=== PATIENT | female | born 1960 | race Caucasian/White ===

== ENCOUNTER 2024-12-04 10:26 | Outpatient (AMB) | payer OTHER, SELFPAY ==
--- NOTE | 2024-12-04 10:33 | MHC.OFFWIV ---
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 - The patient reports a history of diverticulitis diagnosed approximately 10 years ago, with no prior issues until recently. - The patient describes the pain as dull and constant, localized to the lower abdomen, with an onset of severe pain last night after experiencing milder symptoms for a couple of weeks. - The patient reports nausea, particularly after eating, and a metallic taste in the mouth, which she associates with a previous diagnosis of thrush. - The pain worsens with food intake and improves when not eating. - The patient had a colonoscopy last year, which was normal, and she has no history of similar symptoms in the past. - Her last bowel movement was this morning and it was normal and soft. - She had no blood in the stools and she has no black stools. - She denies fever or chills. She denies CP, SOB, diarrhea, hematochezia, dysuria, hematuria, back pain, vomiting, or vaginal discharge. Physical Exam General: Cooperative, healthy appearing, comfortable, no acute distress and well developed Respiratory: Normal respiratory effort and able to speak in complete sentences. Clear to auscultation bilaterally Cardiovascular: Regular rate and rhythm. Normal S1 and S2 GI: Normal to inspection. Hypoactive bowel sounds noted. Soft, non-disteneded, Tender to palpation in the lower abdomen. No guarding or rebound tenderness noted. No CVA tenderness noted. Skin: No rashes or lesions noted Neuro: Patient oriented x3 Extremities: Normal to inspection Patient was informed and verbally consented to the use of an ambient scribe for clinic note documentation during this visit. PFSH Social History Patient Tobacco Use Status: Never used Tobacco Review of Systems Const All systems reviewed & are unremarkable except as noted in HPI and below Physical Exam Vital Signs: Last Vital Signs Temp 98.4 F 12/04/24 10:47 Pulse 83 12/04/24 10:47 BP 118/74 12/04/24 10:47 Pulse Ox 99 12/04/24 10:47 BMI result Body Mass Index 25.3 Assessment & Plan Assessment & Plan (1) Abdominal pain: Code(s): R10.9 - Unspecified abdominal pain Qualifiers: Abdominal location: lower abdomen, unspecified Qualified Code(s): R10.30 - Lower abdominal pain, unspecified Plan Most likely diverticulosis vs diverticulitis vs PUD vs gastritis vs constipation Plan - Diet as tolerated. - Conduct laboratory tests to evaluate for infection. - If laboratory results are abnormal, consider referral to the emergency department for further evaluation, including potential imaging studies. - Follow-up with primary care provider at [facility] for ongoing management and review of laboratory results. Orders: Orders Complete Blood Count Auto Diff Today R10.9 - Unspecified abdominal pain Comprehensive Met. Panel Today R10.9 - Unspecified abdominal pain GI Panel Today R10.9 - Unspecified abdominal pain Coding Level of Care Code New Pt Level 4 (11586) Diagnoses Lower abdominal pain R10.30 Abdominal location: lower abdomen, unspecified
--- OUTSIDE RECORDS SUMMARY | 2024-12-04 10:46 | XMS_ITS | Patient Health Record ---
Author Organization [facility] [employer] Address [address] [facility] [id number] [place] [address] Care Team Providers Care Measurer Machine Name Role Phone WeFi Primary Care Provid er Unavailable Jordan Tyler Unavailable [phone] REASON FOR REFERRAL No Information MEDICATIONS Medication SIG (Take, Route, Fr equency, Duration) Notes Start Date End Date Status Amoxicillin 875 MG 1 tablet Orally ever y 12 hrs for 10 day(s) 11/05/2018 Active SOCIAL HISTORY Sex Assigned At : Social History Observation Description Sex Assigned At Unknown PROBLEMS Problem Type ICD Code Onset Dates Problem Status W/U Status Risk SNOMED Code Notes Problem Chalazion left lower eyelid (H00.15) Active confirmed Chalazion (3239421) Problem Age-related nuclear cataract, bilateral (H25.13) Active confirmed Nuclear senile cataract (616587824) Problem Open angle with borderline findings, low risk, 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
[2024-12-04 10:47] VITALS: BP 118/74; PULSE 83; TEMP 36.9; O2SAT 99; BMI 25.3
== END 2024-12-04 11:39 | disposition home or self-care (01) ==
PROVIDERS: Visit Provider Physician Assistant Medical
DX: R10.30 Lower abdominal pain, unspecified (principal)

== ENCOUNTER 2024-12-04 10:26 | Outpatient (REF) | payer OTHER, SELFPAY ==
[2024-12-04 13:50] LABS: MANUAL DIFF FLAG NO
[2024-12-04 13:59] LABS: Basophils Absolute Auto 0.1 X10*3/uL (0.0-0.2); Basophils Percent Auto 0.6 % (0-2); Eosinophils Absolute Auto 0.1 X10*3/uL (0.0-0.4); Eosinophils Percent Auto 1.1 % (0-4); Hematocrit 37.3 % (37.0-47.0); Hemoglobin 12.7 g/dl (12.0-16.0); Imm Gran Abs Auto 0.03 X10*3/uL (0.00-0.03); Imm Gran Pct Auto 0.2 % (0.0-0.4); Lymphocytes Percent Auto 24.2 % (20-40); Mean Corpuscular Hemoglobin 31.8 pg (27.0-33.0); Mean Corpuscular Volume 93.3 fL (80.0-98.0); Mean Platelet Volume 10.4 fL (9.4-12.3); Monocytes Absolute Auto 0.8 X10*3/uL (0.1-1.2); Monocytes Percent Auto 6.7 % (2-11); Neutrophils Absolute Auto 8.2 x10*3/uL (2.0-8.3); Neutrophils Percent Auto 67.2 % (45-73); Platelet Count 246 X10*3/uL (160-400); Red Cell Distribution Width 13.3 % (11.0-16.0); White Blood Count 12.2 X10*3/uL (4.8-10.8)
[2024-12-04 14:18] LABS: Alanine Aminotransferase 22 U/L (0-31); Albumin Level 4.5 g/dL (3.5-5.0); Alkaline Phosphatase 68 U/L (39-117); Anion Gap 14 (12-20); Aspartate Amino Transferase 24 U/L (5-31); Bilirubin Total 0.6 mg/dL (0.0-1.0); Blood Urea Nitrogen 14 mg/dL (9-16); Calcium 9.4 mg/dL (8.4-10.2); Carbon Dioxide 26 mmol/L (22-29); Chloride 104 mmol/L (96-108); Estimated Glomerular Filt Rate > 60; Glucose Random 101 mg/dL (60-115); Potassium 3.6 mmol/L (3.3-5.1); Sodium 140 mmol/L (135-145); Total Protein 7.3 g/dL (6.5-8.0)
== END 2024-12-04 10:27 | disposition home or self-care (01) ==
LOC: HO.HMGCLDS 10:26
PROVIDERS: Visit Provider Physician Assistant Medical
DX: R10.30 Lower abdominal pain, unspecified (principal); R11.0 Nausea
CPT/HCPCS: 36415; 80053; 85025

== ENCOUNTER 2024-12-15 10:03 | Outpatient (REF) | payer OTHER, SELFPAY ==
--- OUTSIDE RECORDS SUMMARY | 2007-02-05 20:00 | XMS_ITS | Continuity of Care Document ---
Author Organization [facility] vices Address [address] [place] [address] Phone Care Team Providers Care Process Design Engineer Name Role Phone Unavailable Unavailable Unavailable Procedures Procedure Date DETERMINATION OF REFRACT Advance Directives Directive Yes / No Effective Date File Name No Information Encounters Encounter Description Practice Location Reason(s) For Visit Diagnoses Date Provider Providers Copied on Encounter [facility], [address] [place] [address], [address], tel:[phone] [facility] No Information No Information [facility], [address] [place] [address], [facility], tel:[phone] Conversion [place] No Information Family History Family Member Type Diagnosis Age At Onset No Information Payers Payer name Insurance type Covered constitution party ID Authoriza tion(s) No Information Social History Type Description Quantity Date Captured Comments Sex Female Smoking Status No Information Chief Complaint And Reason For Visit No Information Reason For Referral Reason For Referral No Information History Of Present Illness Encounter Date Complaint History Of Prese nt Illness No Information Functional Status Date Functional Assessmen t No Information Instructions Date Instruction Additional Infor mation No Information Assessments Type Assessment Date No Information Patient Care Teams Name Effective Dates (start - stop) Status Members No Information
[2024-12-15 11:55] LABS: MANUAL DIFF FLAG NO
[2024-12-15 12:31] LABS: Hematocrit 37.2 % (37.0-47.0); Hemoglobin 12.9 g/dl (12.0-16.0); Imm Gran Abs Auto 0.01 X10*3/uL (0.00-0.03); Imm Gran Pct Auto 0.1 % (0.0-0.4); Lymphocytes Absolute Auto 2.6 X10*3/uL (1.2-4.9); Mean Corpuscular HGB Conc 34.7 g/dl (31.0-35.0); Mean Corpuscular Hemoglobin 31.9 pg (27.0-33.0); Mean Corpuscular Volume 91.9 fL (80.0-98.0); NRBC Abs Auto 0.000 X10*3/uL (0.0-0.012); NRBC Pct Auto 0.0 /100WBC (0.0-0.2); Platelet Count 263 X10*3/uL (160-400); Red Blood Count 4.05 X10*6/uL (4.20-5.50); White Blood Count 6.8 X10*3/uL (4.8-10.8)
[2024-12-15 13:05] LABS: Cholesterol 194 mg/dL (<200); HDL Cholesterol 48 mg/dL (>40); Triglycerides 154 mg/dL (<150)
== END 2024-12-15 10:04 | disposition home or self-care (01) ==
LOC: HO.LAB 10:03
DX: Z00.00 Encounter for general adult medical examination without abnormal findings (principal); K57.90 Diverticulosis of intestine, part unspecified, without perforation or abscess without bleeding; R14.0 Abdominal distension (gaseous); H93.13 Tinnitus, bilateral; Z13.31 Encounter for screening for depression; Z13.39 Encounter for screening examination for other mental health and behavioral disorders
CPT/HCPCS: 36415; 80061; 82306; 84443; 85025; 96127

== ENCOUNTER 2024-12-15 10:03 | Outpatient (AMB) | payer OTHER, SELFPAY ==
[2024-12-15 10:15] VITALS: BP 138/76; PULSE 76; TEMP 36.4; O2SAT 97; BMI 26.1
--- NOTE | 2024-12-15 10:15 | MHC.PC.OV ---
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 Accompanied by: Spouse Allergies No Known Allergies Allergy (Verified 12/15/24 10:42) Medication List - Last Reconciled 12/15/24 by BRANDEN Jimenez cyclosporine 0.05% (Restasis) 1 drp ophthalmic (eye) BID Tobacco use date assessed: 12/15/24 Fall risk assessment: No Falls in past year Last assessed Fall Risk: 12/15/24 Dental Screening Dental Screen Date: 12/15/24 Did you have a dental visit in the last 12 months?: Yes Did you have a dental problem in the last 6 months where you did not have access to dental care?: No Was dental information given to patient?: Patient has dentist 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 The patient has a history of diverticulosis, which has been associated with abdominal pain and bloating. She experienced significant abdominal pain two weeks ago, accompanied by hot sweats, but the pain has since resolved. A colonoscopy was performed last year, and she was given a fecal occult blood test kit, which she has not yet completed. The patient reports ear discomfort, including ringing and occasional pain, primarily in the right ear. Examination revealed earwax impaction obstructing the view of the eardrum, which may be contributing to her symptoms. She has been advised to use ear drops to soften the wax before a follow-up appointment for ear cleaning. Recent blood work indicated an elevated white blood cell count of 12.2, which is slightly above normal. The patient also has a slightly low red blood cell count, but liver and kidney functions are normal. A repeat complete blood count (CBC) has been planned to monitor these levels. The patient has angiomas on her face, which are not currently bothersome. She expressed interest in a dermatology referral, but is aware that her insurance may not cover it. [facility] Medical History (Updated 12/16/24 @ 06:13 by BRANDEN Jimenez) Diverticulosis Surgical History No pertinent past surgical history Family History Mother Diabetes Multiple myeloma Father Diabetes Maternal Aunt Breast cancer Sister Substance abuse Social History (Updated 12/15/24 @ 10:20 by Maricel Peralta [facility]) Household Members: Spouse Housing: Apartment Alcohol intake: current Patient Tobacco Use Status: Never used Tobacco e-Cigarette/Vaping Use: Never Used service: No Current occupational status: retired Cognitive needs: No Hearing needs: No Vision needs: Yes Questionnaire PHQ-9 Over the last 2 weeks, how often have you been bothered by any of the following problems? 1. Little interest or pleasure in doing things: not at all 2. Feeling down, depressed, or hopeless: not at all 3. Trouble falling or staying asleep, or sleeping too much: not at all 4. Feeling tired or having little energy: not at all 5. Poor appetite or overeating: not at all 6. Feeling bad about yourself - or that you are a failure or have let yourself or your family down: not at all 7. Trouble concentrating on things, such as reading the newspaper or watching television: not at all 8. Moving or speaking so slowly that other people could have noticed. Or the opposite - being so fidgety or restless that you have been moving around a lot more than usual: not at all 9. Thoughts that you would be better off or of hurting yourself in some way: not at all Total score: 0 Depression Screening Interpretation: Negative Depression Screening Done: Yes 90037 - PHQ-9 Billing: Yes Source: Developed by Drs. Low Mayer, Lisa Disla, Brennon Trujillo and colleagues, with an educational alyssa from [employer]. Thrive Questionnaire Date Thrive assessed: 12/15/24 I am a: Patient What is your living situation today?: I have a steady place to live Within the past 12 months, did the food you bought not last and you didn't have the money to get more?: Never true Within the past 12 months, did you worry whether your food would run out before you got money to buy more?: Sometimes True Do you have trouble paying for medicines?: No Do you have trouble getting transportation to medical appointments?: No Do you have trouble paying your heating and electricity bill?: Yes Do you have trouble taking care of your child, family member or friend?: No Do you have trouble with day-to-day activities such as bathing, preparing meals, shopping, managing finances, etc.?: No Are you currently unemployed and looking for a job?: Yes Are you interested in more education?: I choose not to answer this question Please select the resources that you would like help with: Food, Utilities and Job search/training Currently or been in a relationship where the following occur: No concerns reported THRIVE Score: 2 AUDIT C Alcohol Use Questionnaire (AUDIT-C) 1. How often do you have a drink containing alcohol?: Monthly or less 2. How many drinks containing alcohol do you have on a typical day when you are drinking?: 1 or 2 3. How often do you have six or more drinks on one occasion?: Never Total Score: 1 MARGARITA-7 AMB Questionnaire MARGARITA-7 Date MARGARITA - 7 assessed: 12/15/24 Feeling nervous, anxious, or on edge: 0 = Not at all Not being able to stop or control worryin = Not at all Worrying too much about different things: 0 = Not at all Trouble relaxin = Not at all Being so restless that it is hard to sit still: 0 = Not at all Becoming easily annoyed or irritable: 0 = Not at all Feeling afraid as if something awful might happen: 0 = Not at all Total MARGARITA-7 score (0-4 normal; 5-9 mild; 10-14 moderate; 15-21 severe): 0 Source: Developed by Drs. Low Mayer, Lisa Disla, Brennon Trujillo and colleagues, with an educational alyssa from [employer]. MARGARITA-7 Assessment Billing MARGARITA-7 Assessment Tool: MARGARITA-7 Assessment 94269 Review of Systems Const Denies headache(s) Eyes Denies loss of vision ENT Denies vertigo, Denies dizziness, Reports otalgia (on and off, primarily the right ear), Denies headache(s), Reports tinnitus (on and off) and Denies sore throat Card Denies chest pain, Denies leg edema and Denies lightheadedness Resp Denies cough, Denies hemoptysis and Denies wheezing GI Denies abdominal pain, Denies melena, Reports bloating, Denies constipation, Denies diarrhea and Denies vomiting Denies urinary frequency, Denies dysuria and Denies urinary urgency Musc Denies arthralgias, Denies joint swelling, Denies numbness and Denies tingling Neuro Denies Abnormal speech present, Denies behavioral changes, Denies vertigo, Denies dizziness, Denies headache(s), Denies loss of vision, Denies memory loss, Denies numbness and Denies tingling Psych Denies anxiety, Denies behavioral changes, Denies depression, Denies memory loss and Denies panic attacks Juan Antonio/Lymph Denies easy bleeding and Denies easy bruising Aller/Immun Denies wheezing Physical exam (Primary Care) Vital Signs: Last Vital Signs Temp 97.5 F 12/15/24 10:15 Pulse 76 12/15/24 10:15 BP 138/76 12/15/24 10:15 Pulse Ox 97 12/15/24 10:15 Oxygen Delivery Method Room Air 12/15/24 10:15 BMI result Body Mass Index 26.1 Tobacco/Smoking Status: Tobacco use Status Tobacco use date assessed 12/15/24 12/15/24 10:23 Patient Tobacco Use Status Never used Tobacco 12/15/24 10:23 e-Cigarette/Vaping Use Never Used 12/15/24 10:23 PHQ-9: PHQ-9 Score PHQ-9: Total score 0 12/15/24 10:46 Depression Screening Interpretation: Negative Thrive Assessment: Date of Thrive Assessment Date Thrive assessed 12/15/24 12/15/24 10:23 Currently or been in a relationship where the following occur: No concerns reported Const General: healthy appearing, no acute distress, alert and awake Nutritional Appearance: well nourished Orientation/consciousness: oriented to person, oriented to place and oriented to time HENMT Ears: Abnormal EAC present cerumen impaction bilateral and unable to visualize TM bilaterally General nose exam: Normal nasal mucous membranes and turbinates present Throat: Yes posterior oropharynx normal Eyes Conjunctivae: conjunctivae normal Sclerae: sclerae normal Pupils: Equal, round and reactive pupils present Neck Neck: Yes no lymphadenopathy and Yes no JVD Thyroid: Thyroid normal Carotids: no bruits Resp Effort & Inspection: normal respiratory effort and not tachypneic Auscultation: no crackles, no rales, no rhonchi and no wheezes Cardio Rate: regular rate Rhythm: regular rhythm Heart sounds: no murmurs and normal S1 and S2 GI Palpation (GI): Soft to palpation, nontender, no hepatomegaly and no splenomegaly Auscultation: normal bowel sounds Skin General skin exam: no rashes or lesions noted and dry skin Neuro General: oriented to person, oriented to place and oriented to time Cranial nerves: Yes Equal, round and reactive pupils present Speech: No Abnormal speech present Gait exam (Neuro): Normal gait present Motor exam (neuro): no tremor noted Extrem Right upper extremity: full ROM Left upper extremity: full ROM Right lower extremity: full ROM; no edema Left lower extremity: full ROM; no edema Psych Mental Status: mental status grossly normal Speech and movement: Normal speech and movement present Affect: normal affect Attitude: cooperative Thought process: Normal thought process present Coding Level of Care Code New Pt Level 3 (92656) Diagnoses Diverticulosis K57.90 Bloating R14.0 Tinnitus of both ears H93.13 Laterality: bilateral Additional Codes MARGARITA-7 Assessment Billing - MARGARITA-7 Assessment Tool: MARGARITA-7 Assessment 67836 ([id number]) PHQ-9 - 21872 - PHQ-9 Billing: Yes ([id number]) Time Spent (min) 36 Assessment & Plan Assessment & Plan (1) Diverticulosis: Code(s): K57.90 - Diverticulosis of intestine, part unspecified, without perforation or abscess without bleeding Category: Medical Plan: Diagnosed with diverticulosis 10 years ago. Reports that she has not have any issues until recently she was having abdominal bloatedness and discomfort. This has cleared up since and she is currently not having any issues. We will continue to monitor. Contact office for any concerns. (2) Bloating: Code(s): R14.0 - Abdominal distension (gaseous) Category: Medical Plan: Reports recently going to the urgent care because of bloatedness and stomach discomfort. Labs were ordered, showed slightly elevated WBC. Patient has a history of diverticulosis, diagnosed 10 years ago without any issues. Colonoscopy done last year without any issues noted. No red flags noted on exam. Patient reports having spicy foods the day before feeling sick. We will repeat CBC. Abdominal nontender. No new intervention added today. We will continue to monitor. (3) Ringing in the ears: Code(s): H93.19 - Tinnitus, unspecified ear Category: Medical Qualifiers: Laterality: bilateral Qualified Code(s): H93.13 - Tinnitus, bilateral Plan: Reports intermittent ringing in the ears. Ear exam noted cerumen impaction. Manually removed the superficial cerumen with a lighted curette. We will have the patient use Debrox and return for ear cleaning. Plan Return in 8 weeks for physical exam Orders: Orders TSH reflex Free T4 12/15/24 Z00.00 - Encounter for general adult medical examination without abnormal findings UA CC w/rflx Micro + Cult 12/15/24 Z00.00 - Encounter for general adult medical examination without abnormal findings Complete Blood Count Auto Diff 12/15/24 Z00.00 - Encounter for general adult medical examination without abnormal findings Vitamin D 25-OH Total 12/15/24 Z00.00 - Encounter for general adult medical examination without abnormal findings Lipid Panel 12/15/24 Z00.00 - Encounter for general adult medical examination without abnormal findings 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
--- OUTSIDE RECORDS SUMMARY | 2024-12-15 11:06 | XMS_ITS | Clinical Summary ---
Author Organization [facility] Address [address] [place] [address] Care Team Providers Care Perch Mender Name Role Phone Sneha Rosen APRN Primary Care Provider [phone] Allergies No known active allergies Medications Medication Sig Dispensed Refills Start Date End Date Status Multiple Vitamins-Minerals (MULTIVITAL PO) Take by mouth. 0 Activ e aluminum-magnesium hydroxide 200-200 MG/5ML suspensionIndications :Stomatitis Take 5 mL by mouth every 6 (six) hours as needed for indigestion. Mix 5 ml with 1 teaspoon ( 5 ml0 of 2% viscous lidocaine : and 5 ml of liquid Benadryl and gargle and spit out qid 355 mL 0 06/01/2021 Active diphenhydrAMINE (BENADRYL CHILDRENS ALLERGY) 12.5 MG/5ML liquidIndications:Sto matitis Take 5 mL (12.5 mg total) by mouth 4 (four) times a day as needed for allergies. 5 ml to mix with 5 ml or Maalox and 5 ml of Viscous lidocaine to Switch and Gargle and spit out Qid prn 118 mL 0 06/01/2021 Active Active Problems Problem Noted Date Diagnosed Date IFG (impaired fasting glucose) 09/14/2019 Nuclear senile cataract 09/03/2019 Open angle with borderline findings, low risk, b ilateral 09/03/2019 ASCUS with positive high risk HPV cervical 05/06 Overview: Overview: 09/27/2011 pap. Colposcopy/bx neg on 11/21/2011, repeat pap 07/23/2012 neg. Immunizations Name Administration Dates Next Due Covid-19 (Pfizer) Dilution Required 10/12/2020,0 09/20/2020 Influenza Quad (Flucelvax) 0.5mL >6mon Vial (ccI IV4) 05/06/2017 Family History Medical History Relation Name Comments Cancer Mother Dementia Mother Breast cancer Neg Hx Colon cancer Neg Hx Endometrial cancer Neg Hx Ovarian cancer Neg Hx Relation Name Status Comments Father Mother Alive Social History Tobacco Use Types Packs/Day Years Used Date Smoking Tobacco: Former Cigarettes Q uit: 09/09/1981 Smokeless Tobacco: Never Alcohol Use Standard Drinks/Week Comments Yes 0 (1 standard drink = 0.6 oz pur e alcohol) occasionally Sex and Gender Information Value Date Recorded Sex Assigned at Not on file Gender Identity Not on file Sexual Orientation Not on file Job Start Date Occupation Industry Not on file Not on file Not on file Last Filed Vital Signs Vital Sign Reading Time Taken Comments Blood Pressure 130/76 06/01/2021 2:29 PM EST Pulse 89 06/01/2021 2:29 PM EST Temperature 36.5 C (97.7 F) 06/01/2021 2:29 PM EST Respiratory Rate 16 06/01/2021 2:29 PM EST Oxygen Saturation 97% 06/01/2021 2:29 PM EST Inhaled Oxygen Concentration - - Weight 68.4 kg (150 lb 12.8 oz) 06/01/2021 2:29 PM EST Height 161.3 cm (5' 3.5 ) 06/01/2021 2:29 PM EST Body Mass Index 26.29 06/01/2021 2:29 PM EST Plan of Treatment Health Maintenance Due Date Last Done Comments Depression Screening 1972 DTap / Tdap / Td (1 - Tdap) 01/27/1979 Cervical Cancer Screening (Pap Smear) 01/27/1981 Colon Cancer Screening (Colonoscopy) 01/27/2005 Shingrix-Zoster Vaccine (1 of 2) 01/27/2010 Preventative Health Evaluation 09/10/2019 09/09/2018 BMI Counseling 06/01/2022 06/01/2021, 07/0 01/2021, 12/08/2019, Additional history exists Breast Cancer Screening (Mammogram) 05/05/2023 05/05/2021, 03/28/2020, 01/27/2019 COVID-19 Vaccine ( season) 2024 10/12/2020, 09/20/2020 Pneumococcal Vaccine (1 of 1 - PCV) 01/27/2025 Influenza Vaccine (Season Ended) 2025 05/06/2017 RSV Adult > 60+ Yrs or (1 - 1-dose 75+ series) 01/27/2035 Hepatitis C Screening Completed 10/01/2018 Hepatitis B Vaccines Aged Out No long er eligible based on patient's age to complete this topic Pneumococcal Vaccine Aged Out No long er eligible based on patient's age to complete this topic RSV Ped < 20 months Aged Out No longe r eligible based on patient's age to complete this topic Care Teams Perch Mender Relationship Specialty Start Date End Date Sneha Rosen APRN 2 [facility] [address] [facility] [place] [address] PCP - General Family Medicine 03/16/19
--- OUTSIDE RECORDS SUMMARY | 2024-12-15 11:06 | XMS_ITS | Patient Health Record ---
Author Organization [employer]. 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
--- OUTSIDE RECORDS SUMMARY | 2024-12-15 11:06 | XMS_ITS | Clinical Summary ---
Author Organization [facility] Address [address] [place] [address] Care Team Providers Care Wide Area Network Systems Administrator Name Role Phone Unavailable Primary Care Provider Unavailabl e Social History Tobacco Use Types Packs/Day Years Used Date Smoking Tobacco: Never Assessed Comments Unknown Sex and Gender Information Value Date Recorded Sex Assigned at Not on file Legal Sex Female 11:02 AM EDT Gender Identity Not on file Sexual Orientation Not on file Plan of Treatment Health Maintenance Due Date Last Done Comments Hepatitis C Virus Screening 1960 HIV Screening 01/27/1973 DTaP/Tdap/Td Vaccines (1 - Tdap) 01/27/1979 Pneumococcal Vaccines 50+ (1 of 1 - PCV) 01/27/2010 Zoster (Shingles) Vaccine (1 of 2) 01/27/2010 COVID-19 Vaccine (2 - 2023-2 5 season) 2024 09/20/2020 RSV Vaccine 60 years and old er and Patients (1 - 1-dose 75+ series) 01/27/2035 Hepatitis B Vaccines Aged Out No long er eligible based on patient's age to complete this topic
== END 2024-12-15 11:22 | disposition home or self-care (01) ==
LOC: HO.HMCH 10:04
DX: K57.90 Diverticulosis of intestine, part unspecified, without perforation or abscess without bleeding (principal); R14.0 Abdominal distension (gaseous); H93.13 Tinnitus, bilateral

== ENCOUNTER 2024-12-28 13:53 | Outpatient (AMB) | payer OTHER, SELFPAY ==
--- NOTE | 2024-12-28 14:00 | MHC.PC.OV ---
Vital Signs 12/28/24 14:01 Height 5 ft 3 in Weight 144 lb 8 oz BMI 25.6 BP 130/64 Blood Pressure Location Lt brachial Position Sitting Oxygen Delivery Method Room Air Intake Visit Reasons: Ear Irrigation Zigzag Topstitcher Required: No Accompanied by: Self / Same As Patient Allergies No Known Allergies Allergy (Verified 12/28/24 14:37) Medication List - Last Reconciled 12/28/24 by Gloria Ann PA-C cholecalciferol (vitamin D3) 25 mcg PO DAILY cyclosporine 0.05% (Restasis) 1 drp ophthalmic (eye) BID Tobacco use date assessed: 12/28/24 Fall risk assessment: No Falls in past year Last assessed Fall Risk: 12/28/24 Dental Screening Dental Screen Date: 12/28/24 Did you have a dental visit in the last 12 months?: Yes Did you have a dental problem in the last 6 months where you did not have access to dental care?: No Was dental information given to patient?: Patient has dentist HPI Ear Irrigation HPI Details 64 year old female coming to the office for ear cleaning. Reporting ringing in her ears [facility] Medical History Diverticulosis Surgical History No pertinent past surgical history Family History Mother Diabetes Multiple myeloma Father Diabetes Maternal Aunt Breast cancer Sister Substance abuse Social History Household Members: Spouse Housing: Apartment Alcohol intake: current Patient Tobacco Use Status: Never used Tobacco e-Cigarette/Vaping Use: Never Used service: No Current occupational status: retired Cognitive needs: No Hearing needs: No Vision needs: Yes Questionnaire Thrive Questionnaire Date Thrive assessed: 12/28/24 I am a: Patient What is your living situation today?: I have a steady place to live Within the past 12 months, did the food you bought not last and you didn't have the money to get more?: Never true Within the past 12 months, did you worry whether your food would run out before you got money to buy more?: Sometimes True Do you have trouble paying for medicines?: No Do you have trouble getting transportation to medical appointments?: No Do you have trouble paying your heating and electricity bill?: Yes Do you have trouble taking care of your child, family member or friend?: No Do you have trouble with day-to-day activities such as bathing, preparing meals, shopping, managing finances, etc.?: No Are you currently unemployed and looking for a job?: Yes Are you interested in more education?: I choose not to answer this question Currently or been in a relationship where the following occur: No concerns reported THRIVE Score: 2 MARGARITA-7 AMB Questionnaire MARGARITA-7 Date MARGARITA - 7 assessed: 12/28/24 Source: Developed by Drs. Low Mayer, Lisa Disla, Brennon Trujillo and colleagues, with an educational alyssa from [employer]. Review of Systems ENT Details: ear clogged feeling and decreased hearing janie Physical exam (Primary Care) Vital Signs: Last Vital Signs BP 130/64 12/28/24 14:01 Oxygen Delivery Method Room Air 12/28/24 14:01 BMI result Body Mass Index 25.6 Tobacco/Smoking Status: Tobacco use Status Tobacco use date assessed 12/28/24 12/28/24 14:04 Patient Tobacco Use Status Never used Tobacco 12/28/24 14:04 e-Cigarette/Vaping Use Never Used 12/28/24 14:04 Thrive Assessment: Date of Thrive Assessment Date Thrive assessed 12/28/24 12/28/24 14:04 Currently or been in a relationship where the following occur: No concerns reported Const General: cooperative, healthy appearing, comfortable and no acute distress Orientation/consciousness: patient oriented x3 HENMT Head: Yes normocephalic Ears: hearing grossly normal bilaterally and Abnormal EAC present excessive cerumen bilateral General nose exam: Normal external nose present Resp Effort & Inspection: normal respiratory effort Cardio Rate: regular rate Skin General skin exam: no rashes or lesions noted Neuro General: patient oriented x3 Gait exam (Neuro): Normal gait present Psych Affect: normal affect Attitude: cooperative Insight: Good insight present (Psych) Judgement: Good judgement present (Psych) Office Procedures Cerumen Removal Removal: cerumen loop/spoon Notes: patient tolerated procedure well, no complications and ear canal clear [id number] Wax Removal by Spoon/Curette Coding Level of Care Code Est Pt Level 2 (72474) Diagnoses Tinnitus of both ears H93.13 Laterality: bilateral CPT Codes Office Procedure - CPT: 75439-Jyt Wax Removal by Spoon/Curette ([id number]) Assessment & Plan Assessment & Plan (1) Ringing in the ears: Code(s): H93.19 - Tinnitus, unspecified ear Category: Medical Qualifiers: Laterality: bilateral Qualified Code(s): H93.13 - Tinnitus, bilateral Plan: Bilateral ears were cleaned using lighted curette. Patient tolerated the procedure well and left room without complication. TMs were visualized as intact with well aerated middle ear spaces. Small amounts of cerumen remain in the left ear recommend Debrox drops as patient would like to avoid irrigation. Given the persistent nonpulsatile bilateral tinnitus recommend hearing test for further evaluation orders were placed today Plan This note was constructed using voice recognition software. While every effort has been made to ensure accuracy and threading machine operator, still areas may have been included sometimes these areas may affect the content or meeting of the given symptoms. Total time spent caring for the patient today was 15 minutes. This includes time spent before the visit reviewing the chart, time spent during the visit, and time spent after the visit and documentation. Orders: Referrals Speech and Hearing Referral H93.13 - Tinnitus, bilateral
[2024-12-28 14:01] VITALS: BP 130/64; BMI 25.6
--- OUTSIDE RECORDS SUMMARY | 2024-12-28 15:10 | XMS_ITS | Clinical Summary ---
Author Organization [facility] Address [address] [place] [address] Care Team Providers Care Sampling Theory Teacher Name Role Phone Unavailable Primary Care Provider [...]
--- OUTSIDE RECORDS SUMMARY | 2024-12-28 15:10 | XMS_ITS | Patient Health Record ---
Author Organization [employer]. 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
--- OUTSIDE RECORDS SUMMARY | 2024-12-28 15:10 | XMS_ITS | Clinical Summary ---
Author Organization [facility] Address [address] [place] [address] Care Team Providers Care Plating And Point Assembly Supervisor Name Role Phone Sneha Rosen APRN Primary Care Provider [phone] Allergies No known active allergies Medications Medication [...] of 1 - PCV) 01/27/2025 Influenza Vaccine (#1) 2025 05/06/2017 RSV Adult > 60+ Yrs [...] age to complete this topic Care Teams Plating And Point Assembly Supervisor Relationship Specialty Start Date End Date Sneha Rosen APRN 2 [facility] 2 [facility] [address] PCP - General Family Medicine 03/16/19
== END 2024-12-28 14:53 | disposition home or self-care (01) ==
LOC: HO.HMCH 13:54
DX: H93.13 Tinnitus, bilateral (principal); H61.23 Impacted cerumen, bilateral

== ENCOUNTER → 2024-12-28 13:53 | Outpatient (BNVA) | payer OTHER, SELFPAY | DX: H93.13 Tinnitus, bilateral (principal) | CPT/HCPCS: 69210 ==

== ENCOUNTER 2024-12-31 07:06 | Outpatient (REF) | payer OTHER, SELFPAY ==
[2024-12-31 10:55] LABS: Appearance Urine Turbid; Glucose Urine UA Negative (Negative); PH 5.5 (5.0-9.0); Specific Gravity - Urine 1.025 (1.005-1.025); UMIC TRIGGER UACC YES
[2024-12-31 11:56] LABS: UACC Culture Trigger YES
== END 2024-12-31 07:07 | disposition home or self-care (01) ==
LOC: HO.HMGCLDS 07:06
DX: Z00.00 Encounter for general adult medical examination without abnormal findings (principal); R82.90 Unspecified abnormal findings in urine
CPT/HCPCS: 81001; 81003; 87086

== ENCOUNTER 2025-02-09 09:43 | Outpatient (REF) | payer OTHER, SELFPAY ==
[2025-02-09 12:59] LABS: Appearance Urine Clear; Glucose Urine UA Negative (Negative); PH 7.0 (5.0-9.0); Specific Gravity - Urine <= 1.005 (1.005-1.025); UMIC TRIGGER UACC YES
== END 2025-02-09 09:44 | disposition home or self-care (01) ==
LOC: HO.LAB 09:43
DX: Z23 Encounter for immunization (principal); Z00.00 Encounter for general adult medical examination without abnormal findings; R14.0 Abdominal distension (gaseous); K57.90 Diverticulosis of intestine, part unspecified, without perforation or abscess without bleeding; H93.13 Tinnitus, bilateral; E78.2 Mixed hyperlipidemia; R31.21 Asymptomatic microscopic hematuria; E55.9 Vitamin D deficiency, unspecified; R80.9 Proteinuria, unspecified
CPT/HCPCS: 81001; 81003; 88112; 90471; 90714

== ENCOUNTER 2025-02-09 09:43 | Outpatient (AMB) | payer OTHER, SELFPAY ==
--- OUTSIDE RECORDS SUMMARY | 2007-02-05 20:00 | XMS_ITS | Continuity of Care Document ---
Author Organization [facility] vices Address [address] [place] [address] Phone Care Team Providers Care County Manager Name Role Phone Unavailable Unavailable Unavailable Procedures Procedure Date DETERMINATION OF REFRACT Advance Directives Directive Yes / No Effective Date File Name No Information Encounters Encounter Description Practice Location Reason(s) For Visit Diagnoses Date Provider Providers Copied on Encounter [facility], [address] [place] [address], [facility][note 3], tel:[phone] [facility] No Information No Information [facility], [address] [place] [address], [facility][note 3], tel:[phone] Conversion [place] No Information Family History Family [...]
--- NOTE | 2025-02-09 09:51 | MHC.PC.OV ---
Vital Signs 02/09/25 10:06 Height 5 ft 3 in Weight 143 lb 2 oz BMI 25.4 BP 114/72 Blood Pressure Location Lt brachial Position Sitting Respiration 18 Pulse 71 Pulse Source Pulse Oximeter Temp 97.3 F Temp Source Temporal Artery Scan Pulse Oximetry (%) 94 Oxygen Delivery Method Room Air Intake Visit Reasons: Annual Exam Emblem Cutter Required: No Accompanied by: Allergies No Known Allergies Allergy (Verified 02/09/25 10:09) Tobacco use date assessed: 02/09/25 Fall risk assessment: No Falls in past year Last assessed Fall Risk: 02/09/25 Dental Screening Dental Screen Date: 02/09/25 Did you have a dental visit in the last 12 months?: Yes Did you have a dental problem in the last 6 months where you did not have access to dental care?: No Was dental information given to patient?: Patient has dentist HPI Annual Exam HPI Details Dentist: up to date Eye:up to date Snellen: Right: Left: Corrected vision: reading glasses STI screening: Colonoscopy: Reports having this one 2023 with normal findings Pap Smer:She was referred to [facility] Mammogram: last year PHQ-9: Flu: up to date COVID:x4 Tdap: will get in office today Diet:regular Exercise:Walking and stretching The patient is a 65-year-old female presenting annual physical and review of lab results. The patient reports what she describes as a recent flare-up of diverticulitis, characterized by abdominal pain and discomfort, which she associates with dietary intake. She has experienced similar symptoms in the past, but this episode included a new symptom of pain during urination, which she had not experienced before. The flare-up resolved with a liquid diet, and she reports no current symptoms of diverticulitis. The patient has a history of anemia, with recent lab results indicating slightly low red blood cell counts. She is concerned about her blood levels due to her jehovah's witness beliefs as a Mosque, which preclude blood transfusions. The physician plans to monitor her iron, B12, and folate levels to identify any deficiencies. The patient has hyperlipidemia, with triglycerides slightly above the desired range and LDL cholesterol at 116 mg/dL. She is advised to make dietary modifications to manage her cholesterol levels. The patient is noted to have a vitamin D deficiency and is advised to continue supplementation. Preventative care includes a recent colonoscopy, which was normal, and regular mammograms. She was referred to [facility] for routine pap smer. [facility] Medical History Diverticulosis Surgical History No pertinent past surgical history Family History Mother Diabetes Multiple myeloma Father Diabetes Maternal Aunt Breast cancer Sister Substance abuse Social History Household Members: Spouse Housing: Apartment Alcohol intake: current Patient Tobacco Use Status: Never used Tobacco e-Cigarette/Vaping Use: Never Used service: No Current occupational status: retired Cognitive needs: No Hearing needs: No Vision needs: Yes Questionnaire PHQ-9 Over the last 2 weeks, how often have you been bothered by any of the following problems? 1. Little interest or pleasure in doing things: not at all 2. Feeling down, depressed, or hopeless: not at all 3. Trouble falling or staying asleep, or sleeping too much: not at all 4. Feeling tired or having little energy: not at all 5. Poor appetite or overeating: not at all 6. Feeling bad about yourself - or that you are a failure or have let yourself or your family down: not at all 7. Trouble concentrating on things, such as reading the newspaper or watching television: not at all 8. Moving or speaking so slowly that other people could have noticed. Or the opposite - being so fidgety or restless that you have been moving around a lot more than usual: not at all 9. Thoughts that you would be better off or of hurting yourself in some way: not at all Total score: 0 Depression Screening Interpretation: Negative Depression Screening Done: Yes Source: Developed by Drs. Low Mayer, Lisa Disla, Brennon Trujillo and colleagues, with an educational alyssa from [employer]. Thrive Questionnaire Date Thrive assessed: 02/09/25 I am a: Patient What is your living situation today?: I have a steady place to live Within the past 12 months, did the food you bought not last and you didn't have the money to get more?: Never true Within the past 12 months, did you worry whether your food would run out before you got money to buy more?: Sometimes True Do you have trouble paying for medicines?: No Do you have trouble getting transportation to medical appointments?: No Do you have trouble paying your heating and electricity bill?: Yes Do you have trouble taking care of your child, family member or friend?: No Do you have trouble with day-to-day activities such as bathing, preparing meals, shopping, managing finances, etc.?: No Are you currently unemployed and looking for a job?: Yes Are you interested in more education?: I choose not to answer this question Currently or been in a relationship where the following occur: No concerns reported THRIVE Score: 2 AUDIT C Alcohol Use Questionnaire (AUDIT-C) 1. How often do you have a drink containing alcohol?: Monthly or less 2. How many drinks containing alcohol do you have on a typical day when you are drinking?: 1 or 2 3. How often do you have six or more drinks on one occasion?: Never Total Score: 1 MARGARITA-7 AMB Questionnaire MARGARITA-7 Date MARGARITA - 7 assessed: 02/09/25 Feeling nervous, anxious, or on edge: 0 = Not at all Not being able to stop or control worryin = Not at all Worrying too much about different things: 0 = Not at all Trouble relaxin = Not at all Being so restless that it is hard to sit still: 0 = Not at all Becoming easily annoyed or irritable: 0 = Not at all Feeling afraid as if something awful might happen: 0 = Not at all Total MARGARITA-7 score (0-4 normal; 5-9 mild; 10-14 moderate; 15-21 severe): 0 Source: Developed by Drs. Low Mayer, Lisa Disla, Brennon Trujillo and colleagues, with an educational alyssa from [employer]. Review of Systems Const Denies headache(s) Eyes Denies loss of vision ENT Denies vertigo, Denies dizziness, Denies headache(s) and Denies sore throat Card Denies chest pain, Denies leg edema and Denies lightheadedness Resp Denies cough, Denies hemoptysis and Denies wheezing GI Denies abdominal pain, Denies melena, Denies constipation, Denies diarrhea and Denies vomiting Denies urinary frequency, Denies dysuria and Denies urinary urgency Musc Denies arthralgias, Denies joint swelling, Denies numbness and Denies tingling Neuro Denies Abnormal speech present, Denies behavioral changes, Denies vertigo, Denies dizziness, Denies headache(s), Denies loss of vision, Denies memory loss, Denies numbness and Denies tingling Psych Denies anxiety, Denies behavioral changes, Denies depression, Denies memory loss and Denies panic attacks Juan Antonio/Lymph Denies easy bleeding and Denies easy bruising Aller/Immun Denies wheezing Physical exam (Primary Care) Vital Signs: Last Vital Signs Temp 97.3 F 02/09/25 10:06 Pulse 71 02/09/25 10:06 Resp 18 02/09/25 10:06 BP 114/72 02/09/25 10:06 Pulse Ox 94 02/09/25 10:06 Oxygen Delivery Method Room Air 02/09/25 10:06 BMI result Body Mass Index 25.4 Tobacco/Smoking Status: Tobacco use Status Tobacco use date assessed 02/09/25 02/09/25 10:11 Patient Tobacco Use Status Never used Tobacco 02/09/25 09:52 e-Cigarette/Vaping Use Never Used 02/09/25 09:52 PHQ-9: PHQ-9 Score PHQ-9: Total score 0 02/09/25 10:11 Depression Screening Interpretation: Negative Thrive Assessment: Date of Thrive Assessment Date Thrive assessed 02/09/25 02/09/25 10:11 Currently or been in a relationship where the following occur: No concerns reported Const General: healthy appearing, no acute distress, alert and awake Nutritional Appearance: well nourished Orientation/consciousness: oriented to person, oriented to place and oriented to time HENMT Ears: TM's normal bilaterally General nose exam: Normal nasal mucous membranes and turbinates present Eyes Conjunctivae: conjunctivae normal Sclerae: sclerae normal Pupils: Equal, round and reactive pupils present Neck Neck: Yes no lymphadenopathy and Yes no JVD Thyroid: Thyroid normal Carotids: no bruits Resp Effort & Inspection: normal respiratory effort and not tachypneic Auscultation: no crackles, no rales, no rhonchi and no wheezes Cardio Rate: regular rate Rhythm: regular rhythm Heart sounds: no murmurs and normal S1 and S2 GI Palpation (GI): Soft to palpation, nontender, no hepatomegaly and no splenomegaly Auscultation: normal bowel sounds Skin General skin exam: no rashes or lesions noted and dry skin Neuro General: oriented to person, oriented to place and oriented to time Cranial nerves: Yes Equal, round and reactive pupils present Speech: No Abnormal speech present Gait exam (Neuro): Normal gait present Motor exam (neuro): no tremor noted Deep tendon reflexes (DTR's): Right triceps reflex intensity grade: 2+, Left triceps reflex intensity grade: 2+, Rt Biceps (C5, C6): 2+, Left biceps reflex intensity grade: 2+, Right brachioradialis reflex intensity grade: 2+ and Left brachioradialis reflex intensity grade: 2+ Extrem Right upper extremity: full ROM Left upper extremity: full ROM Right lower extremity: full ROM; no edema Left lower extremity: full ROM; no edema Psych Mental Status: mental status grossly normal Speech and movement: Normal speech and movement present Affect: normal affect Attitude: cooperative Thought process: Normal thought process present Immunizations Tenivac (PF) 5 Lf unit-2 Lf unit/0.5 mL intramuscular syringe Performing Provider: BRANDEN Jimenez Performing Location: [facility] Administered by: CITLALY Davey on 02/09/25 10:36 Dose Route Admin Location Dispensed Lot Number Expiration Date [facility] Snow Fence Erector 0.5 mL IM Left Deltoid 0.5 mL [id number] 10/14/26 [id number] [employer] Total Dispensed Waste 0.5 mL 0 % VIS Given Date VIS Provided VIS Publication Date 02/09/25 Single Vaccine 21 Eligibility Eligibility Date Funding Source Not [facility] Eligible 02/09/25 Private Results Reviewed Results Reviewed: Laboratory Tests 12/04/24 12/15/24 12/31/24 11:50 11:54 07:47 WBC 6.8 RBC 4.05 L Hgb 12.9 Hct 37.2 MCV 91.9 MCH 31.9 MCHC 34.7 RDW 13.1 Plt Count 263 MPV 10.2 Sodium 140 Potassium 3.6 Chloride 104 Carbon Dioxide 26 Anion Gap 14 BUN 14 Creatinine 0.84 Estimated GFR > 60 Random Glucose 101 Calcium 9.4 Total Bilirubin 0.6 AST 24 ALT 22 Alkaline Phosphatase 68 Total Protein 7.3 Albumin 4.5 Triglycerides 154 H Cholesterol 194 LDL Cholesterol, Calc 116 H HDL Cholesterol 48 25-OH Vitamin D Total 27.0 L TSH 0.83 Urine Color Yellow Urine Appearance Turbid Urine pH 5.5 Ur Specific Emily 1.025 Urine Protein 30 (1+) H Urine Glucose (UA) Negative Urine Ketones Negative Urine Blood Trace H Urine Nitrite Negative Ur Leukocyte Esterase Moderate (2+) H Urine RBC 3-5 H Urine WBC 21-50 H Ur Squamous Epith Cells 3-5 Urine Bacteria None Seen Hyaline Casts 3-5 Coding Level of Care Code Est Pt Prev Care >65y(35476) Diagnoses Annual physical exam Z00.00 Bloating R14.0 Diverticulosis K57.90 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 Patient had a mammogram last year. Colonoscopy last year, and she was referred to [facility] for routine exams. Tetanus shot given in office today. (2) Bloating: Code(s): R14.0 - Abdominal distension (gaseous) Category: Medical Plan: Reports recently going to the urgent care because of bloatedness and stomach discomfort. Labs were ordered, showed slightly elevated WBC. Patient has a history of diverticulosis, diagnosed 10 years ago without any issues. Colonoscopy done last year without any issues noted. No red flags noted on exam. Patient reports having spicy foods the day before feeling sick. RBC slightly below normal. Abdominal nontender. No new intervention added today. We will continue to monitor. (3) Diverticulosis: Code(s): K57.90 - Diverticulosis of intestine, part unspecified, without perforation or abscess without bleeding Category: Medical Plan: Diagnosed with diverticulosis 10 years ago. Reports that she has not have any issues until recently she was having abdominal bloatedness and discomfort. This has cleared up since and she is currently not having any issues. We will continue to monitor. Contact office for any concerns. (4) Ringing in the ears: Code(s): H93.19 - Tinnitus, unspecified ear Category: Medical Qualifiers: Laterality: bilateral Qualified Code(s): H93.13 - Tinnitus, bilateral Plan: Reports intermittent ringing in the ears. Ear exam noted cerumen impaction. Manually removed the superficial cerumen with a lighted curette. The patient return for ear cleaning with ORALIA Torres with positive effect. TMs are pearly oh with good cone of light. (5) HLD (hyperlipidemia): Code(s): E78.5 - Hyperlipidemia, unspecified Category: Medical Qualifiers: Hyperlipidemia type: mixed hyperlipidemia Qualified Code(s): E78.2 - Mixed hyperlipidemia Plan: Triglycerides 154, total cholesterol 194, LDL 116, HDL 48 Discussed lifestyle modifications including dietary changes and physical activity (6) Hematuria: Code(s): R31.9 - Hematuria, unspecified Category: Medical Qualifiers: Hematuria type: asymptomatic microscopic Qualified Code(s): R31.21 - Asymptomatic microscopic hematuria Plan: Patient has small amount of blood in the urine, along with some protein and leukocytes. C&S showed normal benjy contamination. Will have the patient repeat the urinalysis and add a urine cytology. Continue increasing fluids (7) Vitamin D deficiency: Code(s): E55.9 - Vitamin D deficiency, unspecified Category: Medical Plan: Continue cholecalciferol 25 mcg daily Orders: Orders Td Immunization Today Z23 - Encounter for immunization UA CC w/rflx Micro + Cult Today R31.21 - Asymptomatic microscopic hematuria, R80.9 - Proteinuria, unspecified Vitamin B12 and Folate 3 Months E55.9 - Vitamin D deficiency, unspecified, E78.2 - Mixed hyperlipidemia, K57.90 - Diverticulosis of intestine, part unspecified, without perforation or abscess without bleeding, R14.0 - Abdominal distension (gaseous), R31.21 - Asymptomatic microscopic hematuria, R80.9 - Proteinuria, unspecified IRON PROFILE 3 Months E55.9 - Vitamin D deficiency, unspecified, E78.2 - Mixed hyperlipidemia, K57.90 - Diverticulosis of intestine, part unspecified, without perforation or abscess without bleeding, R14.0 - Abdominal distension (gaseous), R31.21 - Asymptomatic microscopic hematuria, R80.9 - Proteinuria, unspecified Urine Cytology Today R31.21 - Asymptomatic microscopic hematuria, R80.9 - Proteinuria, unspecified Complete Blood Count Auto Diff 3 Months E55.9 - Vitamin D deficiency, unspecified, E78.2 - Mixed hyperlipidemia, K57.90 - Diverticulosis of intestine, part unspecified, without perforation or abscess without bleeding, R14.0 - Abdominal distension (gaseous), R31.21 - Asymptomatic microscopic hematuria, R80.9 - Proteinuria, unspecified Comprehensive Buckner. Panel Fast 3 Months E55.9 - Vitamin D deficiency, unspecified, E78.2 - Mixed hyperlipidemia, K57.90 - Diverticulosis of intestine, part unspecified, without perforation or abscess without bleeding, R14.0 - Abdominal distension (gaseous), R31.21 - Asymptomatic microscopic hematuria, R80.9 - Proteinuria, unspecified TSH reflex Free T4 3 Months E55.9 - Vitamin D deficiency, unspecified, E78.2 - Mixed hyperlipidemia, K57.90 - Diverticulosis of intestine, part unspecified, without perforation or abscess without bleeding, R14.0 - Abdominal distension (gaseous), R31.21 - Asymptomatic microscopic hematuria, R80.9 - Proteinuria, unspecified UA CC w/rflx Micro + Cult 3 Months E55.9 - Vitamin D deficiency, unspecified, E78.2 - Mixed hyperlipidemia, K57.90 - Diverticulosis of intestine, part unspecified, without perforation or abscess without bleeding, R14.0 - Abdominal distension (gaseous), R31.21 - Asymptomatic microscopic hematuria, R80.9 - Proteinuria, unspecified Lipid Panel 3 Months E55.9 - Vitamin D deficiency, unspecified, E78.2 - Mixed hyperlipidemia, K57.90 - Diverticulosis of intestine, part unspecified, without perforation or abscess without bleeding, R14.0 - Abdominal distension (gaseous), R31.21 - Asymptomatic microscopic hematuria, R80.9 - Proteinuria, unspecified
[2025-02-09 10:06] VITALS: BP 114/72; PULSE 71; RESP 18; TEMP 36.3; O2SAT 94; BMI 25.4
--- OUTSIDE RECORDS SUMMARY | 2025-02-09 10:24 | XMS_ITS | Clinical Summary ---
Author Organization [facility] Address [address] [place] [id number] Care Team Providers Care Torpedo Shooter Name Role Phone Unavailable Primary Care Provider [...]
--- OUTSIDE RECORDS SUMMARY | 2025-02-09 10:24 | XMS_ITS | Patient Health Record ---
Author Organization [employer] [employer] 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
--- OUTSIDE RECORDS SUMMARY | 2025-02-09 10:25 | XMS_ITS | Clinical Summary ---
Author Organization [facility] Address [address] [place] [address] Care Team Providers Care Sales Record Clerk Name Role Phone Sneha Rosen APRN Primary Care Provider [phone] Allergies No known active allergies Medications Medication [...] COVID-19 Vaccine ( season) 2024 10/12/2020, 09/20/2020 Fall Risk Assessment 01/27/2025 Osteoporosis Screening (DEXA Scan) 01/27/2025 Pneumococcal Vaccine (1 of 1 - PCV) [...] age to complete this topic Care Teams Sales Record Clerk Relationship Specialty Start Date End Date Sneha Rosen, PHOTOGRAPHIC RESTORER [facility] [address] [facility] [place] [address] PCP - General Family Medicine 03/16/19
== END 2025-02-09 11:38 | disposition home or self-care (01) ==
LOC: HO.HMCH 09:44
DX: Z00.00 Encounter for general adult medical examination without abnormal findings (principal); R14.0 Abdominal distension (gaseous); K57.90 Diverticulosis of intestine, part unspecified, without perforation or abscess without bleeding; H93.13 Tinnitus, bilateral; E78.2 Mixed hyperlipidemia; R31.21 Asymptomatic microscopic hematuria; E55.9 Vitamin D deficiency, unspecified; Z23 Encounter for immunization

== ENCOUNTER 2025-04-22 09:20 | Outpatient (AMB) | payer MEDICARE, MEDICAID, SELFPAY ==
[2025-04-22 09:57] VITALS: BP 126/64; PULSE 71; RESP 18; TEMP 36.2; O2SAT 98; BMI 25.2
--- NOTE | 2025-04-22 09:57 | A.OFFPC_ITS ---
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 Accompanied by: Self / Same As Patient Allergies No Known Allergies Allergy (Verified 04/22/25 10:33) Medication List - Last Reconciled 04/22/25 by BRANDEN Jimenez cholecalciferol (vitamin D3) 25 mcg PO DAILY cyclosporine 0.05% (Restasis) 1 drp ophthalmic (eye) BID Tobacco use date assessed: 04/22/25 Fall risk assessment: No Falls in past year Last assessed Fall Risk: 04/22/25 Dental Screening Dental Screen Date: 04/22/25 Did you have a dental visit in the last 12 months?: Yes Did you have a dental problem in the last 6 months where you did not have access to dental care?: No Was dental information given to patient?: Patient has dentist HPI anemia/hld/vit D/diverticulosis HPI Details The patient is a 65-year-old female presenting for a follow-up visit for health maintenance and lab review. She did not complete the ordered fasting lab work for cholesterol and vitamin D prior to this appointment. The patient reports continuing to take vitamin D. She reports occasional calf soreness with walking but denies persistent pain. [facility] Medical History Diverticulosis Surgical History No pertinent past surgical history Family History Mother Diabetes Multiple myeloma Father Diabetes Maternal Aunt Breast cancer Sister Substance abuse Social History Household Members: Spouse Housing: Apartment Alcohol intake: current Patient Tobacco Use Status: Never used Tobacco e-Cigarette/Vaping Use: Never Used service: No Current occupational status: retired Cognitive needs: No Hearing needs: No Vision needs: Yes Questionnaire PHQ-9 Over the last 2 weeks, how often have you been bothered by any of the following problems? Depression Screening Interpretation: Negative Depression Screening Done: Yes Source: Developed by Drs. Low Mayer, Lisa Disla, Brennon Trujillo and colleagues, with an educational alyssa from [employer]. Thrive Questionnaire Date Thrive assessed: 12/15/24 I am a: Patient What is your living situation today?: I have a steady place to live Within the past 12 months, did the food you bought not last and you didn't have the money to get more?: Never true Within the past 12 months, did you worry whether your food would run out before you got money to buy more?: Sometimes True Do you have trouble paying for medicines?: No Do you have trouble getting transportation to medical appointments?: No Do you have trouble paying your heating and electricity bill?: Yes Do you have trouble taking care of your child, family member or friend?: No Do you have trouble with day-to-day activities such as bathing, preparing meals, shopping, managing finances, etc.?: No Are you currently unemployed and looking for a job?: Yes Are you interested in more education?: I choose not to answer this question Currently or been in a relationship where the following occur: No concerns reported THRIVE Score: 2 MARGARITA-7 AMB Questionnaire MARGARITA-7 Date MARGARITA - 7 assessed: 02/09/25 Source: Developed by Drs. Low Mayer, Lisa Disla, Brennon Trujillo and colleagues, with an educational alyssa from [employer]. Review of Systems Const Denies headache(s) Eyes Denies loss of vision ENT Denies vertigo, Denies dizziness, Denies headache(s) and Denies sore throat Card Denies chest pain, Denies leg edema and Denies lightheadedness Resp Denies cough, Denies hemoptysis and Denies wheezing GI Denies abdominal pain, Denies melena, Denies constipation, Denies diarrhea and Denies vomiting Denies urinary frequency, Denies dysuria and Denies urinary urgency Musc Denies arthralgias, Denies joint swelling, Denies numbness and Denies tingling Neuro Denies Abnormal speech present, Denies behavioral changes, Denies vertigo, Denies dizziness, Denies headache(s), Denies loss of vision, Denies memory loss, Denies numbness and Denies tingling Psych Denies anxiety, Denies behavioral changes, Denies depression, Denies memory loss and Denies panic attacks Juan Antonio/Lymph Denies easy bleeding and Denies easy bruising Aller/Immun Denies wheezing Physical exam (Primary Care) Vital Signs: Last Vital Signs Temp 97.1 F 04/22/25 09:57 Pulse 71 04/22/25 09:57 Resp 18 04/22/25 09:57 BP 126/64 04/22/25 09:57 Pulse Ox 98 04/22/25 09:57 Oxygen Delivery Method Room Air 04/22/25 09:57 BMI result Body Mass Index 25.2 Tobacco/Smoking Status: Tobacco use Status Tobacco use date assessed 04/22/25 04/22/25 10:02 Patient Tobacco Use Status Never used Tobacco 04/22/25 10:02 e-Cigarette/Vaping Use Never Used 04/22/25 10:02 Depression Screening Interpretation: Negative Thrive Assessment: Date of Thrive Assessment Date Thrive assessed 12/15/24 04/22/25 10:02 Currently or been in a relationship where the following occur: No concerns reported Const General: healthy appearing, no acute distress, alert and awake Nutritional Appearance: well nourished Orientation/consciousness: oriented to person, oriented to place and oriented to time HENMT Ears: hearing grossly normal bilaterally General nose exam: Normal external nose present Eyes Conjunctivae: conjunctivae normal Sclerae: sclerae normal Pupils: Equal, round and reactive pupils present Neck Neck: Yes no lymphadenopathy and Yes no JVD Thyroid: Thyroid normal Carotids: no bruits Resp Effort & Inspection: normal respiratory effort and not tachypneic Auscultation: no crackles, no rales, no rhonchi and no wheezes Cardio Rate: regular rate Rhythm: regular rhythm Heart sounds: no murmurs and normal S1 and S2 GI Palpation (GI): Soft to palpation, nontender, no hepatomegaly and no splenomegaly Auscultation: normal bowel sounds Skin General skin exam: no rashes or lesions noted and dry skin Neuro General: oriented to person, oriented to place and oriented to time Cranial nerves: Yes Equal, round and reactive pupils present Speech: No Abnormal speech present Gait exam (Neuro): Normal gait present Motor exam (neuro): no tremor noted Extrem Right upper extremity: full ROM Left upper extremity: full ROM Right lower extremity: full ROM; no edema Left lower extremity: full ROM; no edema Psych Mental Status: mental status grossly normal Speech and movement: Normal speech and movement present Affect: normal affect Attitude: cooperative Thought process: Normal thought process present Coding Level of Care Code Est Pt Level 3 (32891) Diagnoses Bloating R14.0 Diverticulosis K57.90 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 Reports that she is feeling much better. No concerns. (2) Diverticulosis: Code(s): K57.90 - Diverticulosis of intestine, part unspecified, without perforation or abscess without bleeding Category: Medical Plan: Diagnosed with diverticulosis 10 years ago. Reports that she has not have any issues until recently she was having abdominal bloatedness and discomfort. This has cleared up since and she is currently not having any issues. We will continue to monitor. Contact office for any concerns. (3) Ringing in the ears: Code(s): H93.19 - Tinnitus, unspecified ear Category: Medical Qualifiers: Laterality: bilateral Qualified Code(s): H93.13 - Tinnitus, bilateral Plan: Reports intermittent ringing in the ears. Ear exam noted cerumen impaction. Manually removed the superficial cerumen with a lighted curette. The patient return for ear cleaning with ORALIA Torres with positive effect. TMs are pearly oh with good cone of light. Patient was seen by Gloria and had ear cleaning. No other concerns at this time. (4) HLD (hyperlipidemia): Code(s): E78.5 - Hyperlipidemia, unspecified Category: Medical Qualifiers: Hyperlipidemia type: mixed hyperlipidemia Qualified Code(s): E78.2 - Mixed hyperlipidemia Plan: Triglycerides 154, total cholesterol 194, LDL 116, HDL 48 on 12/15/2024-she has not completed follow up labs. We will have the patient complete these labs in follow up after the holidays in 3 months. Discussed lifestyle modifications including dietary changes and physical activity (5) Hematuria: Code(s): R31.9 - Hematuria, unspecified Category: Medical Qualifiers: Hematuria type: asymptomatic microscopic Qualified Code(s): R31.21 - Asymptomatic microscopic hematuria Plan: Patient has small amount of blood in the urine, along with some protein and leukocytes. C&S showed normal benjy contamination. Repeat urinalysis and urine cytology were negative. (6) Vitamin D deficiency: Code(s): E55.9 - Vitamin D deficiency, unspecified Category: Medical Plan: Continue cholecalciferol 25 mcg daily
--- OUTSIDE RECORDS SUMMARY | 2025-04-22 10:21 | XMS_ITS | Clinical Summary ---
Author Organization [facility] Address [address] [facility] [address] [place] [phone] Phone Care Team Providers Care Nuclear Medicine Technologist Name Role Phone Pcp, Unknown Primary Care Provider Unavailabl e Social History Tobacco Use Types Packs/Day Years Used Date Smoking Tobacco: Never Assessed Education Answer Date Recorded Are you interested in more education? Not on christy e 03/10/2025 Are you concerned about learning? Not on file 03/10/2025 No 03/10/2025 No 03/10/2025 Digital Access Answer Date Recorded No 03/10/2025 No 03/10/2025 Reliable internet access at home? Not on file 03/10/2025 Device with a working camera? Not on file Comments Unknown Sex and Gender Information Value Date Recorded Sex Assigned at Not on file Legal Sex Female 3:46 PM EDT Gender Identity Not on file Sexual Orientation Not on file Plan of Treatment Upcoming Encounters Date Type Department Care Team (Late st Contact Info) Description 04/30/2025 12:10 PM EST Office Visit [facility] [address] [place] [address] Pili Caballero MD [address] [facility], [address] [place] [address] [email or web address] Health Maintenance Due Date Last Done Comments Adult Td,Tdap Booster 1960 LIPID PANEL 1960 DEPRESSION SCREENING 1972 SMOKING Hx and SMOKELESS TOB ACCO SCREENING 01/27/1973 HEPATITIS C SCREENING 01/27/1978 HIV ONE-TIME SCREENING (18-6 5 YEARS) 01/27/1978 MAMMOGRAM 2000 COLOGUARD 01/27/2005 COLONOSCOPY 01/27/2005 COLORECTAL CANCER SCREENING 01/27/2005 FIT TEST 01/27/2005 FOBT 01/27/2005 SIGMOIDOSCOPY 01/27/2005 VIRTUAL COLONOSCOPY 01/27/2005 PNEUMOCOCCAL VACCINES (50+ y ears) (1 of 1 - PCV) 01/27/2010 ZOSTER VACCINES (1 of 2) 01/27/2010 INFLUENZA VACCINE (#1) 2025 OSTEOPOROSIS SCREENING INITI AL (ONE-TIME) 01/27/2025 COVID-19 VACCINE (1 - 2024-2 6 season) 2025 RSV VACCINE (1 - 1-dose 75+ series) 01/27/2035 HEPATITIS A VACCINES Aged Out No long er eligible based on patient's age to complete this topic HIB VACCINES Aged Out No longer eligi ble based on patient's age to complete this topic MENINGOCOCCAL VACCINES (ACWY) Aged Out No longer eligible based on patient's age to complete this topic MENINGOCOCCAL VACCINES (B) Aged Out N o longer eligible based on patient's age to complete this topic Medical Devices Not on file Insurance MEDICARE PART A & B [facility] & B [facility] MEDIC[facility] PART A & B [facility] [employer] MEDICARE PART A & B [facility] PART A & B Member Subscriber Plan / Payer (Ef fective 2025-Present) Name:Karime Castro Member ID:[id number] Relation to Subscriber:Self Name:Karime Castro Subscriber ID:[id number] Payer ID:[id number] Group ID:Not on file Type:Medicare [facility] [address] [facility] [place] [address] MEDICARE PART A & B [facility] Care Teams Nuclear Medicine Technologist Relationship Specialty Start Date End Date Pcp, Unknown PCP - General 03/10/25 Additional Source Comments The information contained in this document represents components of the legal health record. It is not the complete legal health record.[facility]
--- OUTSIDE RECORDS SUMMARY | 2025-04-22 10:22 | XMS_ITS | Patient Health Record ---
Author Organization [facility] [employer] 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
--- OUTSIDE RECORDS SUMMARY | 2025-04-22 10:22 | XMS_ITS | Clinical Summary ---
Author Organization [facility] Address [address] [place] [address] Care Team Providers Care Cam Milling Machine Operator Name Role Phone nSeha Rosen APRN Primary Care Provider [phone]- [phone] Allergies No known active allergies Medications Medication [...] Cancer Screening (Mammogram) 05/05/2023 05/05/2021, 03/28/2020, 01/27/2019 Fall Risk Assessment 01/27/2025 Osteoporosis Screening (DEXA Scan) 01/27/2025 Pneumococcal Vaccine (1 of 1 - PCV) 01/27/2025 COVID-19 Vaccine (3 - season) 2025 10/12/2020, 09/20/2020 Influenza Vaccine (#1) 2025 05/06/2017 RSV Adult [...] age to complete this topic Care Teams Cam Milling Machine Operator Relationship Specialty Start Date End Date Sneha Rosen, EXECUTIVE VICE PRESIDENT AND CHIEF FINANCIAL OFFICER [address] [facility] [address] [address] PCP - General Family Medicine 03/16/19
== END 2025-04-22 10:53 | disposition home or self-care (01) ==
LOC: HO.HMCH 09:21
DX: R14.0 Abdominal distension (gaseous) (principal); K57.90 Diverticulosis of intestine, part unspecified, without perforation or abscess without bleeding; H93.13 Tinnitus, bilateral; E78.2 Mixed hyperlipidemia; R31.21 Asymptomatic microscopic hematuria; E55.9 Vitamin D deficiency, unspecified

== ENCOUNTER → 2025-04-22 09:20 | Outpatient (BNVA) | payer MEDICARE, MEDICAID, SELFPAY | DX: R14.0 Abdominal distension (gaseous) (principal); K57.90 Diverticulosis of intestine, part unspecified, without perforation or abscess without bleeding; H93.13 Tinnitus, bilateral; E78.2 Mixed hyperlipidemia; R31.21 Asymptomatic microscopic hematuria; E55.9 Vitamin D deficiency, unspecified | CPT/HCPCS: 99212 ==

== ENCOUNTER 2025-05-19 10:33 | Outpatient (AMB) | payer MEDICARE, MEDICAID, SELFPAY ==
--- NOTE | 2025-05-19 10:37 | A.OFFPC_ITS ---
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 Accompanied by: Self / Same As Patient Allergies No Known Allergies Allergy (Verified 05/19/25 11:01) Medication List - Last Reconciled 05/19/25 by BRANDEN Jimenez cholecalciferol (vitamin D3) 25 mcg PO DAILY cyclosporine 0.05% (Restasis) 1 drp ophthalmic (eye) BID Tobacco use date assessed: 05/19/25 Fall risk assessment: 1 Fall in past year Last assessed Fall Risk: 05/19/25 Dental Screening Dental Screen Date: 05/19/25 Did you have a dental visit in the last 12 months?: Yes Did you have a dental problem in the last 6 months where you did not have access to dental care?: No Was dental information given to patient?: Patient has dentist HPI [facility] 05/12 HPI Details The patient is a 65 year old individual presenting for follow-up post-visit at [facility] after an episode of syncope. The patient experienced an episode of syncope in the hosiery mender, waking up on the floor after feeling very weak. This occurred after straining to have a bowel movement. The patient reports having difficulty with bowel movements the night before the event, passing only small amounts at a time, but denies a history of frequent constipation. The day prior was stressful, and the patient had poor food and fluid intake. The patient was evaluated in the emergency room where a CT scan was reportedly performed. Since the episode, the patient has felt tired and occasionally foggy. The patient also reports recent indigestion with burping, which may have been caused by eating spaghetti sauce followed by milk. The patient is in office today reports that she is feeling okay She denies shortness of breath, chest pain, heart palpitation or dizziness Denies abdominal pain or change in bowel habits-she does reports infrequent heartburn depending on what she eats The patient was diagnosed with a vasovagal Health Maintenance The patient will obtain fasting labs for cholesterol screening prior to the next visit. Follow-up is scheduled for July 23 to review labs and monitor symptoms. Social History - Diet: The patient reports recent consu mption of spaghetti sauce from a jar and milk, which may be related to indigestion. - The patient also had a stressful day p rior to the syncopal episode with associated poor oral intake. Results - Imaging: The patient reported having a CT scan during an emergency room visit, which showed a small amount of blood. [facility] Medical History Diverticulosis Surgical History No pertinent past surgical history Family History Mother Diabetes Multiple myeloma Father Diabetes Maternal Aunt Breast cancer Sister Substance abuse Social History Household Members: Spouse Housing: Apartment Alcohol intake: current Patient Tobacco Use Status: Never used Tobacco e-Cigarette/Vaping Use: Never Used service: No Current occupational status: retired Cognitive needs: No Hearing needs: No Vision needs: Yes Questionnaire PHQ-9 Over the last 2 weeks, how often have you been bothered by any of the following problems? Depression Screening Interpretation: Negative Depression Screening Done: Yes Source: Developed by Drs. Low Mayer, Lisa Disla, Brennon Trujillo and colleagues, with an educational alyssa from [employer]. Thrive Questionnaire Date Thrive assessed: 05/19/25 I am a: Patient What is your living situation today?: I have a steady place to live Within the past 12 months, did the food you bought not last and you didn't have the money to get more?: Never true Within the past 12 months, did you worry whether your food would run out before you got money to buy more?: Sometimes True Do you have trouble paying for medicines?: No Do you have trouble getting transportation to medical appointments?: No Do you have trouble paying your heating and electricity bill?: Yes Do you have trouble taking care of your child, family member or friend?: No Do you have trouble with day-to-day activities such as bathing, preparing meals, shopping, managing finances, etc.?: No Are you currently unemployed and looking for a job?: Yes Are you interested in more education?: I choose not to answer this question Currently or been in a relationship where the following occur: No concerns reported THRIVE Score: 2 AUDIT C Alcohol Use Questionnaire (AUDIT-C) 1. How often do you have a drink containing alcohol?: Monthly or less 2. How many drinks containing alcohol do you have on a typical day when you are drinking?: 1 or 2 3. How often do you have six or more drinks on one occasion?: Never Total Score: 1 MARGARITA-7 AMB Questionnaire MARGARITA-7 Date MARGARITA - 7 assessed: 02/09/25 Feeling nervous, anxious, or on edge: 0 = Not at all Not being able to stop or control worryin = Not at all Worrying too much about different things: 0 = Not at all Trouble relaxin = Not at all Being so restless that it is hard to sit still: 0 = Not at all Becoming easily annoyed or irritable: 0 = Not at all Feeling afraid as if something awful might happen: 0 = Not at all Total MARGARITA-7 score (0-4 normal; 5-9 mild; 10-14 moderate; 15-21 severe): 0 Source: Developed by Drs. Low Mayer, Lisa Disla, Brennon Trujillo and colleagues, with an educational alysas from [employer]. Review of Systems Narrative Review of Systems - Constitutional: Reports fatigue. - Neurological: Reports occasional fogginess since the syncopal episode. - Denies feeling faint currently. - Gastrointestinal: Reports recent indigestion, stomach upset, and eructation. - Reports straining with defecation prior to the syncopal event. - Denies frequent constipation. Const Denies headache(s) Eyes Denies loss of vision ENT Denies vertigo, Denies dizziness, Denies headache(s) and Denies sore throat Card Denies chest pain, Denies leg edema and Denies lightheadedness Resp Denies cough, Denies hemoptysis and Denies wheezing GI Denies abdominal pain, Denies melena, Denies constipation, Denies diarrhea and Denies vomiting Denies urinary frequency, Denies dysuria and Denies urinary urgency Musc Denies arthralgias, Denies joint swelling, Denies numbness and Denies tingling Neuro Denies Abnormal speech present, Denies behavioral changes, Denies vertigo, Denies dizziness, Denies headache(s), Denies loss of vision, Denies memory loss, Denies numbness and Denies tingling Psych Denies anxiety, Denies behavioral changes, Denies depression, Denies memory loss and Denies panic attacks Juan Antonio/Lymph Denies easy bleeding and Denies easy bruising Aller/Immun Denies wheezing Physical exam (Primary Care) Vital Signs: Last Vital Signs Pulse 75 05/19/25 10:38 Resp 18 05/19/25 10:38 BP 124/68 05/19/25 10:38 Pulse Ox 98 05/19/25 10:38 Oxygen Delivery Method Room Air 05/19/25 10:38 BMI result Body Mass Index 25.2 Tobacco/Smoking Status: Tobacco use Status Tobacco use date assessed 05/19/25 05/19/25 10:48 Patient Tobacco Use Status Never used Tobacco 05/19/25 10:48 e-Cigarette/Vaping Use Never Used 05/19/25 10:48 Depression Screening Interpretation: Negative Thrive Assessment: Date of Thrive Assessment Date Thrive assessed 05/19/25 05/19/25 10:48 Currently or been in a relationship where the following occur: No concerns reported Narrative Physical Exam - Abdomen: Stomach is feeling fine on palpation. - Respiratory: Congestion noted on auscultation. Const General: healthy appearing, no acute distress, alert and awake Nutritional Appearance: well nourished Orientation/consciousness: oriented to person, oriented to place and oriented to time HENTN Ears: hearing grossly normal bilaterally General nose exam: Normal external nose present Eyes Conjunctivae: conjunctivae normal Sclerae: sclerae normal Pupils: Equal, round and reactive pupils present Neck Neck: Yes no lymphadenopathy and Yes no JVD Thyroid: Thyroid normal Carotids: no bruits Resp Effort & Inspection: normal respiratory effort and not tachypneic Auscultation: no crackles, no rales, no rhonchi and no wheezes Cardio Rate: regular rate Rhythm: regular rhythm Heart sounds: no murmurs and normal S1 and S2 GI Palpation (GI): Soft to palpation, nontender, no hepatomegaly and no splenomegaly Auscultation: normal bowel sounds Skin General skin exam: no rashes or lesions noted and dry skin Neuro General: oriented to person, oriented to place and oriented to time Cranial nerves: Yes Equal, round and reactive pupils present Speech: No Abnormal speech present Gait exam (Neuro): Normal gait present Motor exam (neuro): no tremor noted Extrem Right upper extremity: full ROM Left upper extremity: full ROM Right lower extremity: full ROM; no edema Left lower extremity: full ROM; no edema Psych Mental Status: mental status grossly normal Speech and movement: Normal speech and movement present Affect: normal affect Attitude: cooperative Thought process: Normal thought process present Coding Level of Care Code Est Pt Level 4 (96089) Diagnoses Vasovagal episode R55 Constipation, unspecified constipation type K59.00 Constipation type: unspecified constipation type Indigestion K30 Time Spent (min) 37 Assessment & Plan Assessment & Plan (1) Vasovagal episode: Code(s): R55 - Syncope and collapse Category: Medical (2) Constipation: Code(s): K59.00 - Constipation, unspecified Category: Medical Qualifiers: Constipation type: unspecified constipation type Qualified Code(s): K59.00 - Constipation, unspecified (3) Indigestion: Code(s): K30 - Functional dyspepsia Category: Medical Plan Plan Patient was informed and verbally consented to the use of an ambient scribe for clinic note documentation during this visit. 1. Vasovagal Syncope The recent syncopal episode is consistent with a vasovagal response, likely triggered by straining during a bowel movement. Contributing factors may include dehydration and stress. Plan includes patient education on the mechanism of vasovagal syncope and avoidance of triggers such as straining. The patient was advised to maintain adequate hydration and to ambulate if defecation is difficult rather than continuing to strain. The patient was strongly advised to call for help if another episode occurs, especially after a fall. 2. Constipation Although the patient denies chronic constipation, the history of straining and passing small volumes of stool is suggestive of the condition, possibly with stool impaction and overflow. A prescription for MiraLAX was sent to the pharmacy to promote regular bowel movements. The patient was counseled to monitor stool size and consistency and to avoid prolonged sitting on the toilet, which can contribute to hemorrhoids. 3. Indigestion The patient reports symptoms of indigestion, including eructation and stomach upset, after consuming certain foods like spaghetti sauce and milk. This suggests a possible food sensitivity or intolerance. Plan is to educate the patient on the low-FODMAP diet as a tool to identify trigger foods. The patient was advised to eliminate high-FODMAP foods and reintroduce them systematically to determine which ones cause symptoms. Advised to avoid combining known dietary irritants. Discussion Notes I discussed with the patient that the recent fainting episode was most likely a vasovagal syncope triggered by straining during a bowel movement, which is a common phenomenon. I advised on prevention strategies, including avoiding straining, maintaining adequate hydration, and not sitting on the toilet for prolonged periods. I strongly recommended that the patient call for help immediately if another fall or syncopal episode occurs. We discussed the patient's gastrointestinal symptoms, including indigestion and likely constipation. I sent a prescription for MiraLAX to assist with bowel regulation. I introduced the concept of the low-FODMAP diet to help identify dietary triggers for indigestion and explained the elimination and reintroduction process. I instructed the patient to obtain fasting blood work for cholesterol monitoring before the next appointment, which is scheduled for July 23. Patient Instructions - The recent fainting episode was likely caused by straining while using the bathroom. - Avoid straining when you have a bowel movement. - If nothing happens, get up and walk around, then try again later. - Drink plenty of fluids to stay hydrated. - A prescription for MiraLAX has been sent to your pharmacy. - This can help make your bowel movements more regular. - To help with stomach upset, look up the FODMAP diet online. - This chart shows which foods are more likely to cause gas and bloating. - Get fasting blood work done to check your cholesterol before your next appointment. - Your follow-up appointment is on July 23. - If you fall or feel like you are going to faint again, please call for help immediately. Medications: New polyethylene glycol 3350 (Miralax) 17 grams PO DAILY 238 grams 2RF
[2025-05-19 10:38] VITALS: BP 124/68; PULSE 75; RESP 18; O2SAT 98; BMI 25.2
--- OUTSIDE RECORDS SUMMARY | 2025-05-19 12:06 | XMS_ITS | Clinical Summary ---
Author Organization [facility] Address [address] [place] [address] Care Team Providers Care Dandy Operator Name Role Phone Sneha Rosen APRN Primary Care Provider [phone] Allergies No known active allergies Medications Medication [...] age to complete this topic Care Teams Dandy Operator Relationship Specialty Start Date End Date Sneha Rosen, GRADUATE NURSE [address] [facility] [address] [place] [address] PCP - General Family Medicine 03/16/19
--- OUTSIDE RECORDS SUMMARY | 2025-05-19 12:06 | XMS_ITS | Patient Health Record ---
Author Organization [facility] 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
== END 2025-05-19 11:34 | disposition home or self-care (01) ==
LOC: HO.HMCH 10:34
DX: R55 Syncope and collapse (principal); K59.00 Constipation, unspecified; K30 Functional dyspepsia

== ENCOUNTER → 2025-05-19 10:33 | Outpatient (BNVA) | payer MEDICARE, MEDICAID, SELFPAY | DX: R55 Syncope and collapse (principal); K59.00 Constipation, unspecified; K30 Functional dyspepsia | CPT/HCPCS: 99212 ==